=== PATIENT | male | born 1995 | race Caucasian/White ===

== ENCOUNTER 2022-09-01 18:43 | Emergency (ER) | payer SELFPAY ==
[~2022-09-01] VITALS: Ht 172.7 cm; Wt 113.4 kg
[2022-09-01 18:44] VITALS: BP 130/80; TEMP 97.7; O2SAT 98
[2022-09-02] MEDS ORDERED: PRED20TA PO (12:15)
[2022-09-02] MEDS ORDERED: NASA1SPR NARES (12:15)
[2022-09-02] MEDS ORDERED: AMOX875T2 PO (12:15)
== END 2022-09-01 19:40 | disposition left against medical advice (07) ==
LOC: M ED 18:43
DX: Z53.21 Procedure and treatment not carried out due to patient leaving prior to being seen by health care provider (principal)

== ENCOUNTER 2022-09-02 08:39 | Emergency (ER) | payer OTHER, SELFPAY ==
[2022-09-02 11:58] LABS: RSV AMPLIFICATION NEGATIVE (NEGATIVE)
[2022-09-02] MEDS ORDERED: PRED20TA PO (12:15)
[2022-09-02] MEDS ORDERED: NASA1SPR NARES (12:15)
[2022-09-02] MEDS ORDERED: AMOX875T2 PO (12:15)
[2022-09-02 12:22] VITALS: BP 131/72; TEMP 98.6; O2SAT 98
== END 2022-09-02 12:26 | disposition home or self-care (01) ==
LOC: M ED 08:39
DX: J01.00 Acute maxillary sinusitis, unspecified (principal); Z79.2 Long term (current) use of antibiotics; Z79.52 Long term (current) use of systemic steroids

== ENCOUNTER → 2022-10-18 | Outpatient (CLI) | payer OTHER ==
[~2022-10-18] MED LIST: AMOX875T2 PO; NASA1SPR NARES; PRED20TA PO
[2022-10-18 15:20] LABS: SEMEN APPEARANCE OPAQUE (OPAQUE)
[2022-10-18 15:21] LABS: SEMEN VISCOSITY LIQUID (LIQUID); SEMEN pH 8.5 (7.0-8.0); WBC CONCENTRATION <=1 M/ml (<=1 M/ml)
== END ==
LOC: M LAB 12:32
PROVIDERS: ATTEND Preventive Medicine Undersea and Hyperbaric Medicine
DX: Z30.2 Encounter for sterilization (principal)